=== PATIENT | male | born 1985 | race Caucasian/White ===

== ENCOUNTER → 2016-12-28 | Outpatient (CLI) | payer BC ==
--- NOTE | ~2016-12-28 | US6 ---
[facility] A Service of [facility] RADIOLOGY TEXT RESULTS PATIENT: COLLEEN MULLIGAN LOCATION: [facility]US : [birth year] UNIT #: [id number] AGE: [address]: ALICIA ACOSTA APRN SEX: M ORDER DR: [id number] [address] [address] [id number] O MR#: [id number] Acc #: [id number] NAME: COLLEEN MULLIGAN : 1985 SEX: M STUDY DATE/TIME: 12/28/2016 8:57 UNIT: [facility] ROOM: STUDY DESCRIPTION: US Abdominal Limited Attending Physician: Alicia Acosta Aprn Referring Physician: Alicia Acosta Aprn Ordering Physician: Alicia Acosta Aprn Primary Care Physician: Alicia Acosta Aprn MEDICAL IMAGING REPORT This report is preliminary unless electronic signature is present. EXAM Right upper quadrant ultrasound HISTORY Palpable lump in the umbilical region. Right upper quadrant abdominal pain for 2 weeks. Nausea for 2 weeks. COMPARISON STUDIES None available. FINDINGS The region of the umbilicus was scanned. No obvious abnormalities are identified. The pancreas is largely obscured due to overlying bowel gas. Echogenicity and echotexture of the hepatic parenchyma is within normal limits. There is question of some mild intrahepatic biliary dilatation. Consider further evaluation with a CT scan to evaluate. No hepatic mass. The common duct is normal in size at the norma hepatis measuring 2 mm. The gallbladder is not distended. No gallstones. The right kidney measures 10.5 cm. Renal cortical thickness and echogenicity is within normal limits. No ascites. IMPRESSION 1. Mild intrahepatic biliary dilatation is suspected. Consider further evaluation with a CT scan of the abdomen to assess for possible etiologies. Please note that the common duct is normal in size at [facility] A Service of [facility] RADIOLOGY TEXT RESULTS PATIENT: COLLEEN MULLIGAN LOCATION: [facility] : 87 UNIT #: [id number] AGE: [address]: ALICIA ACOSTA APRN SEX: M ORDER DR: the norma hepatis. 2. No gallstones. 3. No focal anterior abdominal wall abnormality in the region of the patient's pain, however if a CT is performed, this area will be better evaluated with that study. Dictated by... Franki Castellanos M.D. THIS IS AN ELECTRONICALLY VERIFIED REPORT Franki Castellanos M.D. at 12/30/2016 9:47 AM BRANDON/mikala TD: 12/28/2016 23:14 JOB #: [id number] MEDICAL IMAGING REPORT Page 1 of 1
== END | disposition home or self-care (01) ==
LOC: SGUS 08:52
DX: R19.00 Intra-abdominal and pelvic swelling, mass and lump, unspecified site (principal); K83.8 Other specified diseases of biliary tract
CPT/HCPCS: 76705